=== PATIENT | female | born 1955 | race Caucasian/White ===

== ENCOUNTER 2024-06-20 20:09 | Inpatient (IN) | payer MEDICARE, OTHER ==
[~2024-06-20] VITALS: Ht 160 cm; Wt 127.0 kg
[2024-06-20 20:09] VITALS: TEMP 98.6
[~2024-06-20 20:09] MED LIST: LISINOPRIL10 MG PO; MULTAQ400 MG PO
[2024-06-20 20:39] LABS: BASOPHILS % 0.6 % (0.0-1.0); EOSINOPHILS # (AUTO) 0.2 (0.0-0.4); EOSINOPHILS % 3.3 % (0.0-6.0); HEMATOCRIT 47.6 % (34.2-44.1); HEMOGLOBIN 14.3 g/dL (12.0-16.0); LYMPHOCYTES # (AUTO) 1.1 (1.0-3.2); LYMPHOCYTES % 15.6 % (18.0-39.1); MEAN CORPUSCULAR HEMOGLOBIN 27.4 pg (28-32); MEAN CORPUSCULAR VOLUME 91.2 fL (81-99); MONOCYTES # (AUTO) 0.9 (0.2-0.8); MONOCYTES % 12.8 % (4.4-11.3); NEUTROPHILS # (AUTO) 4.6 (2.1-6.9); NEUTROPHILS % 67.1 % (38.7-80.0); PLATELET COUNT 196 x10e3/uL (140-360); RED BLOOD COUNT 5.22 x10e6/uL (3.6-5.1); RED CELL DISTRIBUTION WIDTH 13.2 % (11.7-14.4); WHITE BLOOD COUNT 6.87 x10e3/uL (4.8-10.8)
[2024-06-20] MEDS: DILTIAZEM HCL 5 MG/ML 5 ML VIAL IV STA (20:40)
[2024-06-20] MEDS: DIGOXIN INJ 0.25 MG/ML 2 ML AMP IV STA (20:45)
[2024-06-20] MEDS: METOPROLOL TARTRATE INJ 1 MG/ML VIAL IV STA (20:46)
[2024-06-20 21:02] LABS: ALBUMIN 4.1 g/dL (3.5-5.0); ALBUMIN/GLOBULIN RATIO 1.2 (0.8-2.0); ANION GAP 15.9 mmol/L (8-16); BILIRUBIN,TOTAL 0.5 mg/dL (0.2-1.2); CALCIUM 10.6 mg/dL (8.4-10.2); CREATININE, SERUM 0.74 mg/dL (0.57-1.11); POTASSIUM 3.9 mmol/L (3.5-5.1); TOTAL PROTEIN 7.5 g/dL (6.5-8.1)
[2024-06-20 21:08] LABS: TROPONIN I 0.007 ng/mL (0-0.300)
[2024-06-20] MEDS ORDERED: Morphine 4mg INJECTION 4 MG/ML INJ IV PRN (21:30)
[2024-06-20] MEDS ORDERED: ONDANSETRON HCL INJ 2MG/ML 2ML 2 MG/ML VIAL IV PRN (21:30)
[2024-06-20] MEDS: LABETALOL HCL 5 MG/ML 20ML VIAL IV STA (21:41)
[2024-06-20] MEDS ORDERED: DILTIAZEM HCL IV 5MG/ML 25 ML VIAL ONE (21:59)
[2024-06-20] MEDS ORDERED: SODIUM CHLORIDE 0.9% 100 ML ONE (22:00)
[2024-06-20] MEDS: SODIUM CHLORIDE 0.9% 1000ML 1,000 ML IV SCH (22:08)
[2024-06-20] MEDS: DILTIAZEM HCL 125 ML IV STA (22:09)
[2024-06-20] MEDS ORDERED: AMIODARONE 900MG 500 ML IV ONE (23:05)
[2024-06-20] MEDS: AMIODARONE HCL 150 MG/100 ML BAG IV ONE ×2 (23:24→23:25)
[2024-06-20] MEDS: AMIODARONE 900MG 900 MG in Premix Bag 1 BAG IV SCH (23:25)
[2024-06-20 23:45] VITALS: PULSE 107; RESP 18
[2024-06-21] VITALS (23 sets, daily range): BP systolic 111–174; BP diastolic 59–96; PULSE 52–144; RESP 13–32; TEMP 98.2–98.5; O2SAT 93–99
[2024-06-21] MEDS ORDERED: LOSARTAN POTASS25 MG PO (02:48)
[2024-06-21] MEDS ORDERED: METOPROLOL SUCC25 MG PO (02:48)
[2024-06-21] MEDS ORDERED: ELIQUIS5 MG PO (02:48)
[2024-06-21 07:06] LABS: BASOPHILS % 0.3 % (0.0-1.0); EOSINOPHILS # (AUTO) 0.2 (0.0-0.4); EOSINOPHILS % 2.5 % (0.0-6.0); HEMATOCRIT 39.2 % (34.2-44.1); HEMOGLOBIN 12.6 g/dL (12.0-16.0); LYMPHOCYTES # (AUTO) 0.8 (1.0-3.2); LYMPHOCYTES % 12.6 % (18.0-39.1); MEAN CORPUSCULAR HGB CONC 32.1 g/dL (31-35); MEAN CORPUSCULAR VOLUME 87.1 fL (81-99); MONOCYTES # (AUTO) 0.9 (0.2-0.8); MONOCYTES % 14.3 % (4.4-11.3); NEUTROPHILS # (AUTO) 4.2 (2.1-6.9); PLATELET COUNT 151 x10e3/uL (140-360); RED CELL DISTRIBUTION WIDTH 13.3 % (11.7-14.4); WHITE BLOOD COUNT 5.94 x10e3/uL (4.8-10.8)
[2024-06-21 07:40] LABS: ALBUMIN 3.3 g/dL (3.5-5.0); ALBUMIN/GLOBULIN RATIO 1.3 (0.8-2.0); BILIRUBIN,TOTAL 0.6 mg/dL (0.2-1.2); CALCIUM 9.7 mg/dL (8.4-10.2); CREATININE, SERUM 0.68 mg/dL (0.57-1.11); TOTAL PROTEIN 5.9 g/dL (6.5-8.1)
[2024-06-21 08:06] LABS: TROPONIN I 0.102 ng/mL (0-0.300)
[2024-06-21] MEDS: METOPROLOL SUCCINATE 25 MG TAB XL PO SCH (12:29)
[2024-06-21] MEDS: AMIODARONE HCL 200 MG TAB PO SCH (12:29)
[2024-06-21] MEDS: MUPIROCIN 2% OINT 22 GM TUBE TOP SCH (12:29)
[2024-06-21] MEDS: APIXABAN 5 MG TABLET PO SCH (12:30)
[2024-06-21] MEDS: LOSARTAN POTASSIUM 25 MG TAB PO SCH (12:30)
[2024-06-21] MEDS ORDERED: AMIODARONE HCL200 MG PO (13:51)
== END 2024-06-21 14:34 | disposition home or self-care (01) | DRG 309 ==
LOC: ER 20:12 → ERHOLD 21:20 → ICU 23:56
PROVIDERS: ADMIT Internal Medicine; ATTEND Internal Medicine
DX: I48.0 Paroxysmal atrial fibrillation (principal); Z68.42 Body mass index [BMI] 45.0-49.9, adult; I16.0 Hypertensive urgency; I10 Essential (primary) hypertension; R00.1 Bradycardia, unspecified; Z79.01 Long term (current) use of anticoagulants; E66.9 Obesity, unspecified; M79.7 Fibromyalgia; Z79.899 Other long term (current) drug therapy
CPT/HCPCS: 36415; 71045; 80053; 82550; 83690; 83880; 84484; 85025; 93005; 99284; J1160; J7030; J7050